=== PATIENT | female | born 1940 | race Caucasian/White ===

== ENCOUNTER 2024-02-12 10:20 | Emergency (ER) | payer OTHER ==
[~2024-02-12] VITALS: Ht 160 cm; Wt 81.2 kg
[2024-02-12 10:30] VITALS: BP 170/67; PULSE 76; RESP 18; TEMP 97.9; O2SAT 99
[2024-02-12 11:46] LABS: BASOPHILS # (AUTO) 0.1 K/uL (0.00-0.22); BASOPHILS % (AUTO) 0.6 % (0.0-2.0); EOSINOPHILS % (AUTO) 0.5 % (0.0-4.0); HEMATOCRIT 35.5 % (36-48); HEMOGLOBIN 12.2 g/dL (12.0-16.0); LYMPHOCYTES # (AUTO) 1.4 K/uL (2.5-16.5); MEAN CORPUSCULAR HEMOGLOBIN 31 pg (27-31); MEAN CORPUSCULAR HGB CONC 34 g/dL (33-37); MONOCYTES # (AUTO) 0.5 K/uL (0.8-1.0); MONOCYTES % (AUTO) 5.7 % (1.7-9.3); NEUTROPHILS # (AUTO) 7.1 K/uL (1.8-7.7); NEUTROPHILS % (AUTO) 78.2 % (42.2-75.2); PLATELET COUNT (AUTO) 191 K/uL (140-450); RED BLOOD CELL COUNT(AUTO) 3.99 MIL/uL (4.20-5.40); RED CELL DISTRIBUTION WIDTH 14.5 % (11.6-13.7)
[2024-02-12 12:00] LABS: ANION GAP 8.5 (8-16); CHLORIDE 105 mmol/L (98-107); CREATININE 1.2 mg/dL (0.6-1.3); GLUCOSE 89 mg/dL (74-106); POTASSIUM 4.5 mmol/L (3.5-5.1); SODIUM SERUM 139 mmol/L (136-145); UREA NITROGEN, BLOOD 22 mg/dL (7-18)
[2024-02-12 12:05] LABS: INR 0.99 (0.8-1.2); PARTIAL THROMBOPLASTIN TIME 24.1 secs (22-35.6); PROTHROMBIN TIME 10.4 secs (10.8-13.4)
[2024-02-12 12:28] LABS: ALANINE AMINOTRANSFERASE 19 U/L (12-78); ALKALINE PHOSPHATASE 7 U/L (50-136); ASPARTATE AMINOTRANSFERASE 19 U/L (15-37); BILIRUBIN,DIRECT 0.1 mg/dL (0.0-0.3); TOTAL BILIRUBIN 0.5 mg/dL (0.0-1.0); TOTAL PROTEIN, SERUM 8.1 g/dL (6.4-8.2)
[2024-02-12] MEDS: amLODIPine 5 MG TAB PO ONE (13:47)
[2024-02-12] MEDS ORDERED: CLON0.1T16 PO (13:59)
[2024-02-12] MEDS ORDERED: AMLO10TA PO (13:59)
[2024-02-12] MEDS: LORazepam 1 MG TAB PO ONE (14:31)
[2024-02-12 14:33] VITALS: PULSE 74; RESP 18; O2SAT 99
[2024-02-12 16:38] VITALS: BP 156/58
== END 2024-02-12 16:39 | disposition home or self-care (01) ==
LOC: MED 10:20
DX: I11.9 Hypertensive heart disease without heart failure (principal); F41.9 Anxiety disorder, unspecified; Z79.899 Other long term (current) drug therapy
CPT/HCPCS: 36415; 71045; 80048; 80076; 83880; 84484; 85025; 85610; 85730; 93005; 99285